=== PATIENT | female | born 1940 | race Caucasian/White ===

== ENCOUNTER → 2023-08-09 14:05 | Outpatient (REF) | payer OTHER, SELFPAY | LOC: HWRAD 14:05 | PROVIDERS: ATTENDING PHYSICIAN Nurse Practitioner; FAMILY PHYSICIAN Family Medicine | DX: R35.1 Nocturia (principal); N99.3 Prolapse of vaginal vault after hysterectomy | CPT/HCPCS: 76770; 76856 ==

== ENCOUNTER 2023-11-13 06:22 | Day surgery (SDC) | payer OTHER, SELFPAY ==
[2023-11-07 10:38] LABS: Hematocrit 39.8 % (37.0-47.0); Hemoglobin 14.2 g/dL (12.0-16.0); Mean Corp Hgb Conc. 35.7 g/dL (33.0-37.0); Mean Corpuscular Volume 89.6 fL (81.0-99.0); Mean Platelet Volume 9.1 fL (7.4-10.4); Platelet Count 250 10^3/uL (130-400); Red Blood Cell Count 4.44 10^6/uL (4.20-5.40); Red Cell Dist. Width 12.6 % (11.5-14.5); White Blood Cell Count 7.3 10^3/uL (4.8-10.8)
[2023-11-07 11:22] LABS: ALT (SGPT) 18 U/L (0-35); AST (SGOT) 27 U/L (14-36); Albumin 4.3 g/dl (3.5-5.0); Alkaline Phosphatase 59 U/L (38-126); Blood Urea Nitrogen 16 mg/dl (7-17); Calcium 9.6 mg/dl (8.4-10.2); Carbon Dioxide 28 mmol/L (22-30); Chloride 101 mmol/L (98-107); Glucose 90 mg/dl (70-99); Potassium 4.2 mmol/L (3.5-5.1); Sodium 138 mmol/L (135-145); Total Protein 6.8 g/dl (6.3-8.2); eGFR > 60.00
[2023-11-13] VITALS (12 sets, daily range): BP systolic 145–172; BP diastolic 62–82; BMI 24.4
[2023-11-13] MEDS: Pyridium 200 MG PO (11:37)
[2023-11-13] MEDS: HEPARIN 5000 UNITS SC (11:37)
[2023-11-13] MEDS: NORMOSOL-R/PLASMALYTE-A 1000 IV (11:43)
== END 2023-11-13 17:27 | disposition home or self-care (01) ==
LOC: SDS 06:22
PROVIDERS: ATTENDING PHYSICIAN Obstetrics & Gynecology; FAMILY PHYSICIAN Family Medicine
PROC: 0ULG7ZZ Occlusion of Vagina, Via Natural or Artificial Opening (ICD-10-PCS; 2023-11-13)
PROC: 0JQC0ZZ Repair Pelvic Region Subcutaneous Tissue and Fascia, Open Approach (ICD-10-PCS; 2023-11-13)
DX: N99.3 Prolapse of vaginal vault after hysterectomy (principal); N39.3 Stress incontinence (female) (male)
CPT/HCPCS: 57250; 57120; 36415; 80053; 85027; 86850; 86900; 86901; 87070; 93005; J1580